=== PATIENT | female | born 2000 | race Two or more races ===

== ENCOUNTER 2021-04-17 14:27 | Emergency (ER) | payer OTHER ==
[~2021-04-17] VITALS: Ht 162.6 cm; Wt 61.0 kg
[2021-04-17] MEDS ORDERED: LIDOCAINE 1% Multi-Dose 20 ML VIAL. INJ ONE (15:15)
--- NOTE | 2021-04-17 15:27 | EKG ---
[facility] [address] [place] [address] Test Date: 2021-04-17 Test Time: 15:24:48 Pat Name: SHELLIE HERNANDEZ Department: Room: Gender: F [employer]: . : 2000 Requested By: LEANDRO OHARA Order Number: [id number] Reading MD: Measurements Intervals [place] Rate: 87 P: 66 AR: 126 QRS: 64 QRSD: 92 T: 48 QT: 360 QTc: 434 Interpretive Statements SINUS RHYTHM OTHERWISE NORMAL ECG RI6.02 No previous ECG available for comparison
[2021-04-17] MEDS ORDERED: KETOROLAC 30 MG/ML VIAL. IVP ONE (15:30)
[2021-04-17] MEDS ORDERED: PROCHLORPERAZINE 10 MG/2 ML VIAL. IV ONE (15:30)
[2021-04-17] MEDS ORDERED: levETIRAcetam 1,000 MG in IV DEXTROSE 5% 100ML 100 ML IV ONE (15:30)
[2021-04-17 15:54] LABS: BASO # 0.1 x10^3/uL (0.0-0.2); BASO % 1 % (0-3); EOS # 0.1 x10^3/uL (0.0-0.7); EOS % 1 % (0-3); HEMATOCRIT 39.5 % (36.0-47.0); HEMOGLOBIN 13.5 g/dL (12.0-15.5); LYMPH # 1.3 x10^3/uL (1.0-4.8); LYMPH % 12 % (24-48); MEAN CORPUSCULAR HEMOGLOBIN 30 pg (25-35); MEAN CORPUSCULAR HGB CONC 34 g/dL (31-37); MEAN CORPUSCULAR VOLUME 88 fL (79-100); MONO # 0.5 x10^3/uL (0.0-1.1); MONO % 4 % (0-9); NEUT # 9.2 x10^3/uL (1.8-7.7); NEUT % 83 % (31-73); PLATELET COUNT 285 x10^3/uL (140-400); RED BLOOD COUNT 4.51 x10^6/uL (3.50-5.40); RED CELL DISTRIBUTION WIDTH 13.6 % (11.5-14.5)
[2021-04-17 16:05] LABS: CALCIUM 8.9 mg/dL (8.5-10.1); POTASSIUM 3.8 mmol/L (3.5-5.1)
[2021-04-17 16:12] LABS: ALBUMIN 4.2 g/dL (3.4-5.0); ALBUMIN/GLOBULIN RATIO 1.1 (1.0-1.7); MAGNESIUM 2.2 mg/dL (1.8-2.4); TOTAL BILIRUBIN 0.8 mg/dL (0.2-1.0); TOTAL PROTEIN 7.9 g/dL (6.4-8.2)
--- NOTE | 2021-04-17 16:52 | PHYS DOC ---
Past Medical History Past Surgical History: No Surgical History Smoking Status: Never Smoker Alcohol Use: None General Adult EDM: Chief Complaint: SYNCOPE HPI: HPI: Patient is a 21 year old female who presents with had a seizure today while at school. She states she started feeling like the lights were bothering her eyes and began to feel lightheaded. She states that she left her art class and walk to the bathroom and states that she remembers fiddling with the tampon machine. Patient was found on the floor unconscious in the bathroom. Patient states she had not taken her Keppra for 2 to 3 days because she keeps forgetting to take it. She does have a left canine broken, abrasion to her upper lip from teeth but no laceration, light sensitivity and she complains of a headache and she states when she awoke she did vomit. She has vomited once since she has been here in the ED. Rates her pain a 7 out of 10 at this time. She has a history of epilepsy. Denies chest pain, shortness of breath, dizziness, abdominal pain, diarrhea, fever, cough, recent illness, focal weakness, numbness or tingling. Review of Systems: Review of Systems: Constitutional: Denies fever or chills. [] Eyes: Denies change in visual acuity. +Photophobia[] HENT: Denies nasal congestion or sore throat. +Left broken tooth[] Respiratory: Denies cough or shortness of breath. [] Cardiovascular: Denies chest pain or edema. [] GI: Denies abdominal pain, +nausea, +vomiting, bloody stools or diarrhea. [] : Denies dysuria. [] Musculoskeletal: Denies back pain or joint pain. [] Integument: Denies rash. [] Neurologic: + headache, denies focal weakness or sensory changes. +Syncope[] Endocrine: Denies polyuria or polydipsia. [] Lymphatic: Denies swollen glands. [] Psychiatric: Denies depression or anxiety. [] Heart Score: C/O Chest Pain: No Risk Factors: Risk Factors: DM, Current or recent (<one month) smoker, HTN, HLP, family history of CAD, obesity. Risk Scores: Score 0 - 3: 2.5% MACE over next 6 weeks - Discharge Home Score 4 - 6: 20.3% MACE over next 6 weeks - Admit for Clinical Observation Score 7 - 10: 72.7% MACE over next 6 weeks - Early Invasive Strategies Current Medications: Current Medications Medications (Trade) Dose Ordered Sig/[facility] Start Time Stop Time Status Last Admin Dose Admin Ketorolac Tromethamine (Toradol 30mg Vial) 30 mg 1X ONCE 04/17/21 15:30 04/17/21 15:31 DC 04/17/21 15:30 30 MG Levetiracetam 1000 mg/Dextrose 110 ml @ 440 mls/hr 1X ONCE 04/17/21 15:30 04/17/21 15:44 DC 04/17/21 15:30 440 MLS/HR Lidocaine HCl (Lidocaine 1% 20ml Vial) 20 ml 1X ONCE 04/17/21 15:15 04/17/21 15:21 DC Prochlorperazine Edisylate (Compazine) 10 mg 1X ONCE 04/17/21 15:30 04/17/21 15:31 DC 04/17/21 15:30 10 MG Allergies: Allergies: Allergies Coded Allergies Type Severity Reaction Last Updated Verified No Known Drug Allergies 04/17/21 No Physical Exam: PE: Constitutional: Well developed, well nourished, no acute distress, non-toxic appearance. [] HENT: Normocephalic, atraumatic, bilateral external ears normal, oropharynx moist, no oral exudates, nose normal. Broken left canine, abrasion to upper lip from tooth[] Eyes: PERRLA, EOMI, conjunctiva normal, no discharge. Light sensitivity[] Neck: Normal range of motion, no tenderness, supple, no stridor. [] Cardiovascular:Heart rate regular rhythm, no murmur [] Lungs & Thorax: Bilateral breath sounds clear to auscultation [] Abdomen: Bowel sounds normal, soft, no tenderness, no masses, no pulsatile masses. [] Skin: Warm, dry, no erythema, no rash. [] Back: No tenderness, no CVA tenderness. [] Extremities: No tenderness, no cyanosis, no clubbing, ROM intact, no edema. [] Neurologic: Alert and oriented X 3, normal motor function, normal sensory function, no focal deficits noted. [] Psychologic: Affect normal, judgement normal, mood normal. [] Current Patient Data: Labs: Laboratory Tests Test 04/17/21 15:44 White Blood Count 11.0 x10^3/uL (4.0-11.0) Red Blood Count 4.51 x10^6/uL (3.50-5.40) Hemoglobin 13.5 g/dL (12.0-15.5) Hematocrit 39.5 % (36.0-47.0) Mean Corpuscular Volume 88 fL (79-100) Mean Corpuscular Hemoglobin 30 pg (25-35) Mean Corpuscular Hemoglobin Concent 34 g/dL (31-37) Red Cell Distribution Width 13.6 % (11.5-14.5) Platelet Count 285 x10^3/uL (140-400) Neutrophils (%) (Auto) 83 % (31-73) H Lymphocytes (%) (Auto) 12 % (24-48) L Monocytes (%) (Auto) 4 % (0-9) Eosinophils (%) (Auto) 1 % (0-3) Basophils (%) (Auto) 1 % (0-3) Neutrophils # (Auto) 9.2 x10^3/uL (1.8-7.7) H Lymphocytes # (Auto) 1.3 x10^3/uL (1.0-4.8) Monocytes # (Auto) 0.5 x10^3/uL (0.0-1.1) Eosinophils # (Auto) 0.1 x10^3/uL (0.0-0.7) Basophils # (Auto) 0.1 x10^3/uL (0.0-0.2) Sodium Level 139 mmol/L (136-145) Potassium Level 3.8 mmol/L (3.5-5.1) Chloride Level 103 mmol/L (98-107) Carbon Dioxide Level 25 mmol/L (21-32) Anion Gap 11 (6-14) Blood Urea Nitrogen 8 mg/dL (7-20) Creatinine 1.0 mg/dL (0.6-1.0) Estimated GFR (Cockcroft-Gault) 70.0 BUN/Creatinine Ratio 8 (6-20) Glucose Level 103 mg/dL (70-99) H Calcium Level 8.9 mg/dL (8.5-10.1) Magnesium Level 2.2 mg/dL (1.8-2.4) Total Bilirubin 0.8 mg/dL (0.2-1.0) Aspartate Amino Transferase (AST) 11 U/L (15-37) L Alanine Aminotransferase (ALT) 28 U/L (14-59) Alkaline Phosphatase 67 U/L (46-116) Troponin I Quantitative < 0.017 ng/mL (0.000-0.055) TA-Yvw-D-Type Natriuretic Peptide 52 pg/mL (0-124) Total Protein 7.9 g/dL (6.4-8.2) Albumin 4.2 g/dL (3.4-5.0) Albumin/Globulin Ratio 1.1 (1.0-1.7) Ethyl Alcohol Level < 10 mg/dL (0-10) Laboratory Tests 04/17/21 15:44 Laboratory Tests 04/17/21 15:44 Vital Signs: Vital Signs Date Time Temp Pulse Resp B/P (MAP) Pulse Ox O2 Delivery O2 Flow Rate FiO2 04/17/21 16:13 82 17 107/73 (84) 97 Room Air 04/17/21 14:32 98.1 98.1 EKG: EK and read by Dr. Marin as sinus rhythm and no STEMI Radiology/Procedures: Radiology/Procedures: [] Impression: [facility] [address] [place], [place] [id number] IMAGING REPORT Signed PATIENT: SHELLIE HERNANDEZ ACCOUNT: [id number] : 2000 LOCATION: ER AGE: 21 SEX: F EXAM STATUS: REG ER ORD. PHYSICIAN: LEANDRO OHARA APRN REASON: FALL, SYNCOPE, FACIAL TRAUMA PROCEDURE: CT HEAD AND CERVICAL SPINE WO EXAM: 1. CT HEAD WITHOUT CONTRAST. 2. CT FACIAL BONES WITHOUT CONTRAST. 3. CT CERVICAL SPINE WITHOUT CONTRAST. HISTORY: Fall, head and facial trauma. TECHNIQUE: Computed tomography of the head, facial bones and cervical spine was performed without intravenous contrast. One or more of the following individualized dose reduction techniques were utilized for this examination: 1. Automated exposure control. 2. Adjustment of the mA and/or kV according to patient size. 3. Use of iterative reconstruction technique. COMPARISON: None. FINDINGS: There is no intracranial hemorrhage. Cosby-white differentiation is preserved. The ventricles are normal in size and position. The temporal bones are unremarkable. The calvarium reveals no suspicious lesions. No facial fractures are identified. There is mild mucosal thickening in the left maxillary sinus. The orbits are unremarkable. Alignment is maintained. The craniocervical junction is unremarkable. No fractures are identified. Intervertebral disc heights are maintained. There is no prevertebral soft tissue swelling. There is no central canal stenosis or neural foraminal stenosis. IMPRESSION: 1. No acute cranial findings. 2. No facial fractures. 3. No cervical fracture or malalignment. Electronically signed by: Aaron Pettit MD (04/17/2021 5:04 PM) [facility] DICTATED and SIGNED BY: ERMIAS PETTIT MD DATE: 04/17/[id number] 0 [facility] [address] [place] [address] IMAGING REPORT Signed PATIENT: SHELLIE HERNANDEZ ACCOUNT: [id number] : 2000 LOCATION: ER AGE: 21 SEX: F EXAM STATUS: REG ER ORD. PHYSICIAN: LEANDRO OHARA APRN REASON: SYNCOPE,ALSO CT WAITING ON PREG TEST PROCEDURE: PORTABLE CHEST 1V XR CHEST 1V CLINICAL INDICATIONS: Reason: SYNCOPE, fall. Facial trauma. Comparison: None available. Findings: No acute lung infiltrate or pleural effusion or pulmonary edema or lung mass or pneumothorax is seen. The heart size, pulmonary vasculature, mediastinum and both amina are unremarkable. IMPRESSION: No acute radiographic abnormality is seen. There is a doublering metallic structure overlying the mid chest which is most likely is related to a brassiere. Ingested foreign body is possible. Therefore, clinical correlation is needed. Electronically signed by: Jean Carlos Roberts MD (04/17/2021 5:00 PM) [id number] DICTATED and SIGNED BY: JEAN CARLOS ROBERTS MD DATE: 04/17/[id number] 0 Course & Med Decision Making: Course & Med Decision Making Pertinent Labs and Imaging studies reviewed. (See chart for details) See HPI. Alert and oriented x4. Ambulatory with steady gait. Skin pink warm and dry. Abrasion to the inner upper lip mucosa. She does not bite her tongue. Left upper canine is broken. No gum line damage. Tooth is still intact and routed. Lungs are clear to all station all lobes. No focal bony spinal tenderness. No swelling or deformity to the face. PERRLA. No numbness or tingling. Moving all extremities. Patient is stable and in no distress. All radiology is normal. Tolerating PO. [] Dragon Disclaimer: Dragon Disclaimer: This electronic medical record was generated, in whole or in part, using a voice recognition dictation system. Departure Departure Impression: Primary Impression: Seizure Additional Impression: Syncopal episodes Qualified Codes: R55 - Syncope and collapse Disposition: HOME / SELF CARE / HOMELESS Condition: STABLE Referrals: NO PCP (PCP) ESTUARDO DILLARD MD Patient Instructions: Epilepsy, Syncope Additional Instructions: Make sure you are taking your medication as prescribed. Follow-up with your neurologist or your primary care physician as soon as possible. If you have another syncopal episode or seizure return to emergency room. LEANDRO OHARA APRN Apr 17, 2021 16:52
--- NOTE | 2021-04-17 17:03 | RAD ---
XR CHEST 1V CLINICAL INDICATIONS: Reason: SYNCOPE, fall. Facial trauma. Comparison: None available. Findings: No acute lung infiltrate or pleural effusion or pulmonary edema or lung mass or pneumothora x is seen. The heart size, pulmonary vasculature, mediastinum and both amina are unremarkable. IMPRESSION: No acute radiographic abnormality is seen. There is a doublering metallic structure overl markel the mid chest which is most likely is related to a brassiere. Ingested foreign body is possible. Therefore, clinical correlation is needed. Electronically signed by: Salty Roberts MD (04/17/2021 5:00 PM) [id number]
--- NOTE | 2021-04-17 17:06 | RAD ---
EXAM: 1. CT HEAD WITHOUT CONTRAST. 2. CT FACIAL BONES WITHOUT CONTRAST. 3. CT CERVICAL SPINE WITHOUT CONTRAST. HISTORY: Fall, head and facial trauma. TECHNIQUE: Computed tomography of the head, facial bones and cervical spine was performed without int ravenous contrast. One or more of the following individualized dose reduction techniques were utilize d for this examination: 1. Automated exposure control. 2. Adjustment of the mA and/or kV according to patient size. 3. Use of iterative reconstruction technique. COMPARISON: None. FINDINGS: There is no intracranial hemorrhage. Cosby-white differentiation is preserved. The ventricl es are normal in size and position. The temporal bones are unremarkable. The calvarium reveals no suspicious lesions. No facial fractures are identified. There is mild mucosal thickening in the left maxillary sinus. The orbits are unremarkable. Alignment is maintained. The craniocervical junction is unremarkable. No fractures are identified. In tervertebral disc heights are maintained. There is no prevertebral soft tissue swelling. There is no central canal stenosis or neural foraminal stenosis. IMPRESSION: 1. No acute cranial findings. 2. No facial fractures. 3. No cervical fracture or malalignment. Electronically signed by: Aaron Pettit MD (04/17/2021 5:04 PM) [facility]
[2021-04-17 18:00] VITALS: BP 106/71
== END 2021-04-17 18:23 | disposition home or self-care (01) ==
LOC: ER 14:27
DX: S00.511A Abrasion of lip, initial encounter (principal); R56.9 Unspecified convulsions; R55 Syncope and collapse; R11.2 Nausea with vomiting, unspecified; R51.9 Headache, unspecified; W18.39XA Other fall on same level, initial encounter; Y93.89 Activity, other specified; Y92.89 Other specified places as the place of occurrence of the external cause; Y99.8 Other external cause status
CPT/HCPCS: 36415; 70450; 70486; 71045; 72125; 80053; 80177; 83735; 83880; 84484; 85025; 93005; 96365; 96375; 99285; G0480; J0780; J1885; J1953; J3490; J7060